=== PATIENT | female | born 1975 | race African-American/Black ===

== ENCOUNTER 2017-12-31 12:19 | Inpatient (IN) | payer SELFPAY ==
[~2017-12-31 12:19] MED LIST: EPHEDrine SULFATE 50 MG/5 ML SYG
[2017-12-31] MEDS ORDERED: METHYLERGONOVINE 0.2 MG INJ IM (12:30)
[2017-12-31] MEDS ORDERED: CARBOPROST 250 MCG INJ IM (12:30)
[2017-12-31] MEDS ORDERED: MISOPROSTOL 200 MCG TAB PR ×2 (12:30→14:30)
[2017-12-31] MEDS ORDERED: CEFAZOLIN 2 GM/50 ML (PMX) 50 ML IVPB (12:30)
[2017-12-31] MEDS ORDERED: OXYTOCIN 30 UNITS/LR 500 ML IV ×2 (12:30→15:05)
[2017-12-31 13:02] LABS: ADD MAN DIFF? NO
[2017-12-31 13:06] LABS: WHITE BLOOD COUNT 5.3 10^3/ul (4.8-10.8)
[2017-12-31 13:06] LABS: ABNORMAL IP MESSAGE 1; BASOPHILS % 0.6 % (0.0-2.0); EOSINOPHILS # 0.1 10^3/ul (0.0-0.5); EOSINOPHILS % 0.9 % (0.0-7.0); HEMATOCRIT 33.5 % (37.0-47.0); HEMOGLOBIN 10.9 g/dl (12.0-16.0); LYMPHOCYTES # 1.5 10^3/ul (0.8-2.9); LYMPHOCYTES % 28.8 % (15.0-51.0); MEAN CORPUSCULAR HEMOGLOBIN 27.3 pg (29.0-33.0); MEAN CORPUSCULAR HGB CONC 32.5 g/dl (32.0-37.0); MEAN CORPUSCULAR VOLUME 83.8 fl (82.0-101.0); MEAN PLATELET VOLUME 13.2 fl (7.4-10.4); MONOCYTE # 0.5 10^3/ul (0.3-0.9); MONOCYTES % 9.5 % (0.0-11.0); NEUTROPHIL # 3.2 10^3/ul (1.6-7.5); NEUTROPHILS % 59.8 % (39.0-77.0); PLATELET COUNT 181 10^3/UL (140-415); RED CELL DISTRIBUTION WIDTH 15.2 % (11.5-14.5)
[2017-12-31 13:07] LABS: POSITIVE DIFF @See below
[2017-12-31 13:24] LABS: PROTIME 12.2 Sec (11.9-14.9)
[2017-12-31 13:25] LABS: PARTIAL THROMBOPLASTIN TIME 29.6 Sec (25.0-35.0)
[2017-12-31] MEDS: LACTATED RINGER'S 1,000 ML IV ×2 (13:47→18:50)
[2017-12-31] MEDS ORDERED: EPHEDrine SULFATE 50 MG/5 ML SYG (13:57)
[2017-12-31] MEDS ORDERED: morphine SULFATE/PF (10 MG/10 ML) INJ (13:58)
[2017-12-31] MEDS ORDERED: BUPIVACAINE 0.75%/DEXT (SPINAL) 2 ML INJ (13:59)
[2017-12-31] MEDS ORDERED: PHENYLephrine (100 MCG/ML) 5ML SYG (14:23)
[2017-12-31] MEDS ORDERED: ONDANSETRON 4 MG INJ (14:24)
[2017-12-31] MEDS ORDERED: METOCLOPRAMIDE 10 MG INJ (14:24)
[2017-12-31] MEDS ORDERED: KETOROLAC 30 MG INJ (14:25)
[2017-12-31] MEDS ORDERED: NA PHOSPHATE/BIPHOS 133 ML ENEMA PR (14:30)
[2017-12-31] MEDS ORDERED: OXYCODONE/ACETAMINOPHEN (5/325) TAB PO (14:30)
[2017-12-31 15:01] LABS: RAPID PLASMA REAGIN NONREACTIVE (NR)
[2017-12-31] MEDS ORDERED: CEFAZOLIN 1 GM INJ (15:05)
[2017-12-31] MEDS: OXYTOCIN 30 UNITS/LR 500 ML IV (15:23)
[2017-12-31] MEDS ORDERED: morphine (1 MG/ML) 10ML SYRINGE IV ×3 (15:30)
[2017-12-31] MEDS ORDERED: NALOXONE (0.4 MG/ML) INJ IV ×2 (15:30→22:30)
[2017-12-31] MEDS ORDERED: morphine 2 MG INJ IV ×6 (15:30→22:30)
[2017-12-31] MEDS ORDERED: ONDANSETRON 4 MG INJ IV (15:30)
[2017-12-31] MEDS ORDERED: DIPHENHYDRAMINE 50 MG INJ IV ×3 (15:30→22:30)
[2017-12-31] MEDS ORDERED: KETOROLAC 30 MG INJ IV (15:30)
[2017-12-31 17:56] LABS: HEPATITIS B SURFACE ANTIGEN NEGATIVE (NEGATIVE)
[2017-12-31] MEDS: IBUPROFEN 600 MG TAB PO (18:00)
[2017-12-31 18:06] LABS: HIV 1&2 ANTIBODY NEGATIVE (NEGATIVE)
[2017-12-31] MEDS: SENNA/DOCUSATE NA (8.6MG/50MG) TAB PO (21:55)
[2017-12-31] MEDS: ONDANSETRON 4 MG INJ IV (22:45)
[2018-01-01] MEDS: LACTATED RINGER'S 1,000 ML IV ×3 (02:46→14:04)
[2018-01-01] MEDS: IBUPROFEN 600 MG TAB PO ×4 (05:36→17:42)
[2018-01-01 07:59] LABS: ADD MAN DIFF? NO
[2018-01-01 08:06] LABS: BASOPHILS % 0.3 % (0.0-2.0); EOSINOPHILS % 0.4 % (0.0-7.0); HEMATOCRIT 28.8 % (37.0-47.0); HEMOGLOBIN 9.3 g/dl (12.0-16.0); LYMPHOCYTES # 1.6 10^3/ul (0.8-2.9); LYMPHOCYTES % 18.2 % (15.0-51.0); MEAN CORPUSCULAR HEMOGLOBIN 27.2 pg (29.0-33.0); MEAN CORPUSCULAR HGB CONC 32.3 g/dl (32.0-37.0); MEAN CORPUSCULAR VOLUME 84.2 fl (82.0-101.0); MONOCYTE # 0.7 10^3/ul (0.3-0.9); MONOCYTES % 7.3 % (0.0-11.0); NEUTROPHIL # 6.6 10^3/ul (1.6-7.5); NEUTROPHILS % 73.4 % (39.0-77.0); PLATELET COUNT 143 10^3/UL (140-415); RED BLOOD COUNT 3.42 10^6/ul (4.20-5.40)
[2018-01-01] MEDS: SENNA/DOCUSATE NA (8.6MG/50MG) TAB PO ×2 (09:00→21:26)
[2018-01-01] MEDS: KETOROLAC 30 MG INJ IV (11:46)
[2018-01-01] MEDS: OXYCODONE/ACETAMINOPHEN (5/325) TAB PO ×2 (18:36→22:34)
[2018-01-02] MEDS: OXYCODONE/ACETAMINOPHEN (5/325) TAB PO (05:40)
[2018-01-02] MEDS: IBUPROFEN 600 MG TAB PO ×5 (05:40→23:45)
[2018-01-02] MEDS: SENNA/DOCUSATE NA (8.6MG/50MG) TAB PO ×2 (09:01→22:37)
[2018-01-02] MEDS: LANOLIN 7 GM TUBE TOP (23:45)
[2018-01-03] MEDS: IBUPROFEN 600 MG TAB PO ×2 (05:43→12:32)
[2018-01-03] MEDS: SENNA/DOCUSATE NA (8.6MG/50MG) TAB PO (09:57)
[2018-01-03] MEDS: MEASLES,MUMPS,RUBELLA VACCINE INJ SC* (10:33)
[2018-01-03] MEDS: DIPHTH/TET/ACEL PERTUSS (ADULT) 0.5 ML VIAL IM* (12:34)
[2018-01-05 13:31] LABS: RUBELLA ANTIBODY - IGG 6.48 index; RUBELLA ANTIBODY - IGM <20.00 AU/mL
== END 2018-01-03 16:30 | disposition home or self-care (01) | DRG 766 ==
LOC: L-D 12:19 → PP1 18:00
PROVIDERS: Specialist
PROC: 10D00Z1 Extraction of Products of Conception, Low, Open Approach (ICD-10-PCS; principal; 2017-12-31)
DX: O34.219 Maternal care for unspecified type scar from previous cesarean delivery (principal); O32.1XX0 Maternal care for breech presentation, not applicable or unspecified; Z3A.39 39 weeks gestation of pregnancy; Z37.0 Single live birth
CPT/HCPCS: 85025; 85610; 85730; 86592; 86703; 86762; 86850; 86900; 86901; 87340; 99464